=== PATIENT | male | born 1960 | race Caucasian/White ===

== ENCOUNTER → 2021-11-10 | Outpatient (CLI) | payer OTHER ==
--- NOTE | 2021-11-10 14:26 | XR ---
EXAMINATION TYPE: XR hand complete RT DATE OF EXAM: 11/10/2021 CLINICAL HISTORY: Pain since injury 5 months ago. TECHNIQUE: Frontal, lateral and oblique images of the right hand are obtained. COMPARISON: None. FINDINGS: There is no acute or old displaced fracture evident in the right hand. Mild to moderate na rrowing with mild spurring third through fifth MCP joints greatest at the third level. Mild narrowin g throughout the PIP and DIP joints of the phalanges. Mild soft tissue swelling greatest at the third PIP joint is noted. IMPRESSION: As above.
== END | disposition home or self-care (01) ==
LOC: RADXRMAIN 13:51
PROVIDERS: ATTEND Family Medicine
DX: M79.641 Pain in right hand (principal); M77.8 Other enthesopathies, not elsewhere classified